=== PATIENT | male | born 1985 | race Caucasian/White ===

== ENCOUNTER 2017-07-04 13:21 | Emergency (ER) | payer SELFPAY ==
[2017-07-04 13:34] VITALS: BP 135/89
--- NOTE | 2017-07-04 13:43 | ED Physician Documentation ---
PD HPI WOUND RECHECK - Stated complaint Stated Complaint: SWELLING ON BODY - Chief complaint Chief Complaint: Wound - Histroy obtained from History obtained from: Patient - History of Present Illness Location: Other (Stung by a bee to the left leg and right shoulder 2 days ago and is having significant redness and itching around the right shoulder especially without fevers.) Review of Systems Constitutional: denies: Fever, Chills Throat: denies: Dental pain / toothache, Sore throat Cardiac: denies: Chest pain / pressure, Palpitations PD PAST MEDICAL HISTORY - Past Medical History Past Medical History: No - Past Surgical History Past Surgical History: Yes - Present Medications Home Medications: Ambulatory Orders Medication Instructions Recorded Confirmed Cephalexin [Keflex] 500 mg PO QID #20 capsule 07/04/17 predniSONE [Deltasone] 60 mg PO DAILY 5 Days 07/04/17 - Allergies Allergies/Adverse Reactions: Allergies Allergy/AdvReac Type Severity Reaction Status Date / Time No Known Drug Allergies Allergy Verified 07/04/17 13:32 - Social History Does the pt smoke?: No Smoking Status: Never smoker Does the pt drink ETOH?: No Does the pt have substance abuse?: No - Immunizations Immunizations are current?: Yes PD ED PE NORMAL - Vitals Vital signs reviewed: Yes - General General: Alert and oriented X 3, No acute distress - HEENT HEENT: Pharynx benign - Derm Derm: Other (There is a small bee sting without significant reaction on the posterior medial left calf. On the back of the right shoulder there is a more significant reaction with a pustule suggesting a little bit of infection but nothing that needs draining.) - Neuro Neuro: Alert and oriented X 3, Normal speech Results - Vitals Vitals: Vital Signs - 24 hr 07/04/17 07/04/17 13:33 13:39 Temperature 36.7 C Heart Rate 102 H Respiratory 14 Rate Blood Pressure 135/89 H O2 Saturation 96 Oxygen O2 Source Room air Departure - Departure Disposition: 01 Home, Self Care Clinical Impression: Bee sting reaction Qualifiers: Encounter type: initial encounter Injury intent: accidental or unintentional Qualified Code(s): T63.441A - Toxic effect of venom of bees, accidental ( unintentional), initial encounter Condition: Good Record reviewed to determine appropriate education?: Yes Instructions: ED Sting Bite Insect Infec Prescriptions: predniSONE [Deltasone] 60 mg PO DAILY 5 Days Cephalexin [Keflex] 500 mg PO QID #20 capsule Comments: Call your doctor to arrange a follow-up appointment, make the next available appointment. In the interim, return anytime if worse or if new symptoms develop. Your blood pressure was elevated today on check into the emergency department. This does not mean that you have hypertension, it is a common phenomenon to come to the emergency department and have elevated blood pressure. I recommend that she see her primary care physician within the week to have it rechecked when you are feeling better. Discharge Date/Time: 07/04/17 13:53
== END 2017-07-04 13:53 | disposition home or self-care (01) ==
LOC: ED 13:21
DX: T63.441A Toxic effect of venom of bees, accidental (unintentional), initial encounter (principal); R03.0 Elevated blood-pressure reading, without diagnosis of hypertension
CPT/HCPCS: 99283